=== PATIENT | male | born 1965 | race Hispanic/Latino ===

== ENCOUNTER 2018-02-02 08:22 | Day surgery (SDC) | payer OTHER ==
[2018-02-01 14:24] VITALS: BMI 27.9
--- NOTE | 2018-02-01 22:58 | HP ---
SHORT STAY HISTORY AND PHYSICAL DATE OF ADMISSION: 02/02/2018 HISTORY OF PRESENT ILLNESS: This is a 52-year-old Latin-Filipino male who comes for a colonoscopy fo r colon cancer screening. The patient has no specific GI symptoms. His bowel movements are fairly r egular. He has no family history of colon cancer. ALLERGIES: None. SOCIAL HISTORY: The patient does not smoke, but drinks alcohol socially. MEDICAL ILLNESSES: 1. Hypertension. 2. Hyperlipidemia. 3. Fracture, right ankle, 10 years ago. PHYSICAL EXAMINATION: VITAL SIGNS: Pulse is 70, blood pressure 130/80. HEENT: Conjunctivae clear. CARDIOVASCULAR SYSTEM: First and second heart sounds normal. LUNGS: Clear to auscultation. ABDOMEN: Soft to palpate. No organomegaly. No tenderness. No masses. EXTREMITIES: Reveal no edema. ADMITTING DIAGNOSIS: A 52-year-old Latin-[place]ip[place] male who comes for a colonoscopy for colon cancer screening.
--- NOTE | 2018-02-02 12:34 | OP ---
DATE OF PROCEDURE: 02/02/2018 SURGEON: Jayleen Neville M.D. OPERATIVE PROCEDURE: Colonoscopy. PREOPERATIVE DIAGNOSIS: A 52-year-old male undergoing colonoscopy for colon cancer [facility]. POSTOPERATIVE DIAGNOSES: 1. Sigmoid diverticular disease. 2. Otherwise, the exam is normal. PROCEDURE IN DETAIL: The patient was placed on his left lateral position and was given sedation by A nesthesia Department. A rectal exam was done before the scope was advanced into the rectum. No lesi ons were felt on rectal exam. A Pentax video colonoscope was introduced into the rectum and advanced all the way into the cecum. The prep was very good. The mucosa appeared normal throughout the colo n with normal vascular pattern. The appendiceal orifice, ileocecal valve, cecum, no pathology seen. Withdrawal of scope in the cecum and ascending colon, hepatic flexure, no pathology seen. The trans verse colon, splenic flexure, descending colon, no pathology seen. The sigmoid colon showed scattere d diverticular disease. Retroflexion of the scope in the rectum showed no lesions. DISCHARGE PLANNING: This is a 52-year-old male who came for colonoscopy for colon ca ncer screening. The colonoscopy showed sigmoid diverticular disease. Otherwise the exam is normal. DISCHARGE RECOMMENDATIONS: 1. High-fiber diet. 2. The patient was advised to call me if he develops abdominal pain or hematochezia. 3. Repeat colonoscopy in 10 years.
[2018-02-02] MEDS ORDERED: Lidocaine 1% PF 5 ML VIAL ONE (14:00)
[2018-02-02] MEDS ORDERED: PROPOFOL 200 MG/20 ML VIAL ONE (14:00)
== END 2018-02-02 11:04 | disposition home or self-care (01) ==
LOC: SDC 08:22
PROVIDERS: ATTEND Internal Medicine Gastroenterology
PROC: 0DJD8ZZ Inspection of Lower Intestinal Tract, Via Natural or Artificial Opening Endoscopic (ICD-10-PCS; principal; 2018-02-02)
DX: Z12.11 Encounter for screening for malignant neoplasm of colon (principal); K57.30 Diverticulosis of large intestine without perforation or abscess without bleeding; I10 Essential (primary) hypertension; E78.5 Hyperlipidemia, unspecified; Z79.899 Other long term (current) drug therapy
CPT/HCPCS: J2001; J2704

== ENCOUNTER 2018-11-13 18:20 | Emergency (ER) | payer OTHER ==
[~2018-11-13 18:20] MED LIST: ISOVUE-370 76%-LOCM 1 ML ONE
[2018-11-13 19:12] LABS: #Basophils 0.1 thou/uL (0.0-0.2); #Eosinphils 0.2 thou/uL (0.0-0.7); #Lymphocytes 2.7 thou/uL (1.20-3.40); #Monocytes 0.4 thou/uL (0.11-0.59); #Neutrophils 3.8 thou/uL (1.40-6.50); %Basophils 0.9 % (0.0-1.0); %Eosinophils 2.2 % (0.0-10.0); %Monocytes 5.5 % (0.0-10.0); %Neutrophils 53.3 % (42.0-75.0); Hemoglobin 13.9 g/dL (14.0-18.0); Mean Corpuscular HGB CONC 32.7 g/dL (32.0-36.0); Mean Corpuscular Hemoglobin 30.1 pg (27.0-31.0); Mean Corpuscular Volume 92.1 fL (78.0-98.0); Mean Platelet Volume 6.5 fL (7.4-10.4); Platelet Count 275 thou/uL (130-400); RBC Distribution Width 11.7 % (11.5-14.5); Red Blood Cell (RBC) Count 4.64 mill/uL (4.70-6.10); White Blood Cell (WBC) Count 7.1 thou/uL (4.8-10.8)
--- NOTE | 2018-11-13 19:25 | RAD ---
CHEST TWO VIEW: 11/13/18 HISTORY: Chest pain. COMPARISON: None. FINDINGS: Lungs are clear. No pneumothorax or effusion. The cardiac silhouette and mediastinal contours are wit hin normal limits. IMPRESSION: No acute intrathoracic abnormality. POS: [facility]
--- NOTE | 2018-11-13 19:35 | RAD ---
THORACIC SPINE THREE VIEW 11/13/18 HISTORY: Crush injury. COMPARISON: None. FINDINGS: No acute fracture of the thoracic spine. Vertebral body heights and disc spaces are maintained. Visua lized ribs are unremarkable. IMPRESSION: No acute abnormality. POS: [facility]
[2018-11-13 19:36] LABS: ALT (SGPT) 23 U/L (8-55); AST (SGOT) 15 U/L (5-34); Albumin 4.4 g/dL (3.5-5.0); Alkaline Phosphatase 98 U/L (40-150); Anion Gap 14 mmol/L (10-20); BUN (Urea Nitrogen) 17 mg/dL (8.4-25.7); Bilirubin, Total 0.4 mg/dL (0.2-1.2); CK (CPK) 80 U/L (30-200); Calc. Creatinine Clearance 0 mL/min (70-130); Calcium 9.9 mg/dL (7.8-10.44); Carbon Dioxide 27 mmol/L (22-29); Chloride 103 mmol/L (98-107); Estimated GFR-MDRD 68; Globulin 3.2 g/dL (2.4-3.5); Glucose 136 mg/dL (70-105); Potassium 3.8 mmol/L (3.5-5.1); Protein, Total 7.6 g/dL (6.0-8.3); Sodium 140 mmol/L (136-145)
--- NOTE | 2018-11-13 20:24 | CT ---
CT CHEST WITHOUT CONTRAST 11/13/18 HISTORY: Pain. Trauma. COMPARISON: Radiograph same day. FINDINGS: The sternum and manubrium are intact. No thoracic spine fracture. No facet joint widening. There is m otion artifact through the right T1 superior articular facet which gives the appearance of a fracture although is not felt to be real. Spinous processes are intact. Clavicle are intact. Nondisplaced buckle fracture right anterolateral f ifth rib. No acute displaced rib fracture. Costal cartilage is without fracture. Lungs are clear. No pneumothorax. No contusion. No pneumatocele. No significant pleural fluid. Thyroid is unremarkable. No acute aortic injury. Limited evaluation of the upper abdomen is unremarka ble. IMPRESSION: Nondisplaced buckle fracture right anterior fifth rib with a right anterior chest wall soft tissue co ntusion. POS: [facility]
== END 2018-11-13 21:59 | disposition home or self-care (01) ==
LOC: ERS 18:20
DX: S22.31XA Fracture of one rib, right side, initial encounter for closed fracture (principal); S20.211A Contusion of right front wall of thorax, initial encounter; I10 Essential (primary) hypertension; Z79.899 Other long term (current) drug therapy; W23.0XXA Caught, crushed, jammed, or pinched between moving objects, initial encounter
CPT/HCPCS: 36415; 71046; 71260; 72072; 80053; 82550; 84484; 85025; 93005; 94760; Q9966

== ENCOUNTER 2019-03-17 11:31 | Outpatient (CLI) | payer OTHER ==
--- NOTE | 2019-03-17 13:22 | MRI ---
MRI OF RIGHT SHOULDER PERFORMED WITHOUT CONTRAST ENHANCEMENT: HISTORY: Right shoulder pain. History of a ganglion cyst removal. FINDINGS: There is moderate arthrosis of the AC joint. There is a nonretracted full-thickness partial width far anterior supraspinatus tendon tear. This oc curs at the attachment of the anteriormost fibers. It measures approximately 6 mm in AP dimension. There is associated tendinosis of the supraspinatus tendon. In addition, there is increased signal c hange along the anterior fibers along the undersurface of the anterior fibers of the infraspinatus te ndon. This is not fluid density, but I suspect represents more than just simple tendinosis probably represents an undersurface tar with granulation tissue. It measures approximately 30-40% of the thick ness of some of the far anterior fibers. The subscapularis tendon appears intact. There is tendinosis of the biceps tendon and there appears to be a split tear involving the intraarticular portion of the biceps. There is also a chronic-appea ring SLAP-type tear of the superior labrum. The inferior glenohumeral ligament is intact. Ganglion cyst is noted of the greater tuberosity. There are arthritic changes of the glenohumeral joint space. IMPRESSION: 1. Far anterior nonretracted partial width supraspinatus tendon tear as described above. 2. Increased signal change involving the undersurface of the anterior fibers of the infraspinatus te ndon. I suspect this is related to granulation related to a partial undersurface tear of this region measuring 30-40% of the thickness of the tendon. 3. Tendinosis of the intraarticular portion of the biceps tendon with what appears to be a split tea r. There is also a chronic-appearing superior labrum anterior to posterior tear present and cyst inv olving the superior glenoid in this region. 4. No evidence of any significant rotator cuff muscle atrophy. Some minimal fatty infiltration of t he teres minor muscles incidentally noted. POS: [facility]
== END 2019-03-17 11:32 | disposition home or self-care (01) ==
LOC: MRI 11:31
PROVIDERS: ATTEND Orthopaedic Surgery
DX: M25.511 Pain in right shoulder (principal); M75.101 Unspecified rotator cuff tear or rupture of right shoulder, not specified as traumatic; M75.21 Bicipital tendinitis, right shoulder; S43.401A Unspecified sprain of right shoulder joint, initial encounter; M85.611 Other cyst of bone, right shoulder

== ENCOUNTER 2019-04-08 08:07 | Outpatient (CLI) | payer OTHER ==
[2019-04-08 09:11] LABS: Hemoglobin 13.9 g/dL (14.0-18.0); Mean Corpuscular HGB CONC 32.8 g/dL (32.0-36.0); Mean Corpuscular Hemoglobin 29.8 pg (27.0-31.0); Mean Platelet Volume 6.7 fL (7.4-10.4); Platelet Count 241 thou/uL (130-400); RBC Distribution Width 12.2 % (11.5-14.5); Red Blood Cell (RBC) Count 4.67 mill/uL (4.70-6.10); White Blood Cell (WBC) Count 6.4 thou/uL (4.8-10.8)
[2019-04-08 09:29] LABS: Anion Gap 11 mmol/L (10-20); BUN (Urea Nitrogen) 21 mg/dL (8.4-25.7); Calc. Creatinine Clearance 0 mL/min (70-130); Calcium 9.2 mg/dL (7.8-10.44); Carbon Dioxide 25 mmol/L (22-29); Chloride 107 mmol/L (98-107); Estimated GFR-MDRD 74; Glucose 106 mg/dL (70-105); Potassium 4.1 mmol/L (3.5-5.1); Sodium 139 mmol/L (136-145)
--- NOTE | 2019-04-08 17:12 | EKG ---
Test Reason : Blood Pressure : / mmHG Vent. Rate : 061 BPM Atrial Rate : 061 BPM P-R Int : 174 ms QRS Dur : 104 ms QT Int : 412 ms P-R-T Axes : 026 066 011 degrees QTc Int : 414 ms Normal sinus rhythm Normal ECG When compared with ECG of 13-NOV-2018 18:36, No significant change was found Confirmed by DR. Yumi LOZANO ([id number]) on 04/08/2019 5:12:16 PM Referred By: ZAHIDA Confirmed By:DR. Yumi LOZANO
== END 2019-04-08 08:08 | disposition home or self-care (01) ==
LOC: LABBT 08:07
PROVIDERS: ATTEND Orthopaedic Surgery
DX: Z01.818 Encounter for other preprocedural examination (principal); M75.41 Impingement syndrome of right shoulder; M75.101 Unspecified rotator cuff tear or rupture of right shoulder, not specified as traumatic; M75.21 Bicipital tendinitis, right shoulder; S43.491A Other sprain of right shoulder joint, initial encounter
CPT/HCPCS: 80048; 85027; 93005; 93010

== ENCOUNTER 2019-04-21 09:14 | Day surgery (SDC) | payer OTHER ==
[2019-04-08 08:30] VITALS: BMI 28.3
[2019-04-21] MEDS ORDERED: PROPOFOL 200 MG/20 ML VIAL ONE (09:26)
[2019-04-21] MEDS ORDERED: Rocuronium Bromide 10 MG/ML (10ML VIAL) ONE (09:26)
[2019-04-21] MEDS ORDERED: Fentanyl 100 MCG/2 ML VIAL ONE (10:17)
[2019-04-21] MEDS ORDERED: Midazolam HCl 2 mg/2 ml Vial ONE ×2 (10:17→12:08)
[2019-04-21] MEDS ORDERED: ceFAZolin Sodium (SDC) 2 GM/100 ML BAG ONE (10:53)
[2019-04-21] MEDS ORDERED: Promethazine HCl 25 MG/ML VIAL IM PRN (11:28)
[2019-04-21] MEDS ORDERED: traMADol HCl 50 MG TAB PO PRN ×2 (11:28)
[2019-04-21] MEDS ORDERED: HYDROcodone/Acetaminophen 10/325 mg Tablet PO PRN ×2 (11:28)
[2019-04-21] MEDS ORDERED: Ropivacaine HCl/PF 250 ML in Premix Bag 1 BAG NERVE BLCK SCH (11:28)
[2019-04-21] MEDS ORDERED: Ketorolac Tromethamine 30 MG/ML VIAL IVP PRN (11:28)
[2019-04-21] MEDS ORDERED: Ondansetron PF 4 MG/2 ML Vial IVP PRN (11:28)
[2019-04-21] MEDS ORDERED: Zolpidem Tartrate 5 MG TAB PO PRN (11:28)
[2019-04-21] MEDS ORDERED: Fentanyl 100 MCG/2 ML VIAL IV PRN (11:31)
[2019-04-21] MEDS ORDERED: Ropivacaine 0.2% 550 ML 550 ML NERVE BLCK SCH (15:40)
[2019-04-21] MEDS ORDERED: Ondansetron ODT 4 MG TAB ONE (17:21)
--- NOTE | 2019-04-21 20:26 | OP ---
DATE OF PROCEDURE: 04/21/2019 PREOPERATIVE DIAGNOSES: 1. Rotator cuff tear of the right shoulder. 2. Right acromioclavicular arthritis. 3. Biceps tendinitis of the right shoulder. 4. SLAP tear in the right shoulder. 5. Mass in the anterior aspect of right shoulder, possible ganglion cyst. POSTOPERATIVE DIAGNOSES: 1. Rotator cuff tear of the right shoulder. 2. Right acromioclavicular arthritis. 3. Biceps tendinitis of the right shoulder. 4. SLAP tear in the right shoulder. 5. Mass in the anterior aspect of right shoulder, possible ganglion cyst, with the cyst being a lipoma. PROCEDURES PERFORMED: 1. Arthroscopy of the right shoulder, subacromial decompression, rotator cuff repair. 2. Arthroscopic excision of distal clavicle. 3. Biceps tenodesis. 4. Superior labral repair (SLAP repair). 5. Excision of lipoma of the anterior aspect of the right shoulder. ANESTHESIA: General. DESCRIPTION OF PROCEDURE: The patient had a supraclavicular block performed prior to surgery. He was given preoperative IV antibiotics, taken to the operating room, placed in supine position. Satisfactory general anesthesia was performed. The patient was then placed in the left lateral decubitus position. All bony prominences were well padded. The right upper extremity was placed in 15 pounds of traction. Initially, the mass over the anterior aspect of the shoulder in the region of the bicipital groove of the proximal humerus was opened. A 3 cm incision was made over the mass and a lipoma was encountered. It was well encapsulated and was completely removed. The anterior deltoid muscle fibers were divided bluntly. The biceps tendon sheath was found open in the biceps tendon, which was longitudinally torn and erythematous consistent with biceps tendinitis was located and the suture using #2 FiberWire. The shoulder joint was then arthroscoped through the posterior, anterior, superior, and lateral portals. Upon entering the shoulder joint, the patient was noted to have no significant arthritic changes. The proximal aspect of the biceps tendon was noted to again have longitudinal tearing and tendinitis and a 9-degree surface ArthroWand was used to cut the biceps tendon off the superior aspect of the labrum. The superior labrum which was torn both anterior and posterior to the biceps tendon was repaired using Arthrex PushLock anchors and the #2 FiberWire 2 anchors were utilized to provide good repair of the labrum. The subacromial space was then entered. There was significant amount of bursitis, which was cleaned up with the shaver and the surface ArthroWand. Bur was used to thin down the undersurface of the acromion. The distal clavicle and acromioclavicular joint were located. The inferior spur was removed and the distal aspect of the clavicle was removed with a high-speed bur. The anterior fibers of the supraspinatus tendon were noted to be torn, but non retracted and a 2 x 2 anchor bridge was used utilizing FiberTape and to revise the repair for the rotator cuff. This provided excellent strength for the repair and good reduction of the repair. Attention was then turned back to the biceps tendon, where the biceps tenodesis was performed, drilling a hole and using the Arthrex 8 mm anchor and additional sutures were also added to provide stability to the arthrodesis site. All the wounds were irrigated during the procedure. The fascia over the deltoid muscle was closed with 2-0 Vicryl. All the skin incisions were closed with 3-0 Rapide. Sterile dressing was applied. The patient was taken out of traction. He was awakened, extubated, and transferred to recovery room in stable condition. ESTIMATED BLOOD LOSS: 150 mL. COMPLICATIONS: None. Job ID: [id number]
--- NOTE | 2019-04-25 05:40 | PQF ---
[facility] POST DISCHARGE CLINICAL DOCUMENTATION IMPROVEMENT CLARIFICATION FORM l Todays Date: 04/25/19 l Patients Name HERMANN LARA l l Admit Date 04/21/19 l Disch Date 04/21/19 Visual Coordinator Name Dione Pereira Email: [email or web address] Cell: [phone] To be completed by Visual Coordinator: Present Clinical Indicators - Signs / Symptoms Results and Location in Medical Record [ ] Documentation of: [ ] [ ] Documentation of: [ ] [ ] Documentation of: [ ] [ ] Documentation of: [ ] [ ] Risks [ ] [ ] [ ] Treatment [ ] Excision of shoulder lipoma Query for lipoma size [ ] [ ] To be completed by Physician: MARY SHIELDS The documentation in this patients record requires clarification to ensure coding compliance and accuracy. Check the appropriate box and include in your discharge summary. [ ] [ ] [ ] [ ] Please check this box if this does not apply to this patient [ ] Unable to determine [ ] Other diagnosis: Review the following information and exercise your independent professional judgment in responding to the clarification. Based upon the clinical findings, risk factors, and treatment, please clarify if you are treating one of the above probable or suspected diagnoses. Physician Signature: Date Time MTDD
== END 2019-04-21 18:00 | disposition home or self-care (01) ==
LOC: SDC 09:14
PROVIDERS: ATTEND Orthopaedic Surgery
PROC: 0PB94ZZ Excision of Right Clavicle, Percutaneous Endoscopic Approach (ICD-10-PCS; principal; 2019-04-21)
PROC: 0LU Tendons, Supplement (ICD-10-PCS; principal; 2019-04-21)
PROC: 0MM14ZZ Reattachment of Right Shoulder Bursa and Ligament, Percutaneous Endoscopic Approach (ICD-10-PCS; principal; 2019-04-21)
PROC: 0LQ14ZZ Repair Right Shoulder Tendon, Percutaneous Endoscopic Approach (ICD-10-PCS; principal; 2019-04-21)
PROC: 0JBD0ZZ Excision of Right Upper Arm Subcutaneous Tissue and Fascia, Open Approach (ICD-10-PCS; principal; 2019-04-21)
PROC: 3E0T3BZ Introduction of Anesthetic Agent into Peripheral Nerves and Plexi, Percutaneous Approach (ICD-10-PCS; principal; 2019-04-21)
PROC: 0LS14ZZ Reposition Right Shoulder Tendon, Percutaneous Endoscopic Approach (ICD-10-PCS; principal; 2019-04-21)
DX: M75.101 Unspecified rotator cuff tear or rupture of right shoulder, not specified as traumatic (principal); M75.41 Impingement syndrome of right shoulder; S43.431A Superior glenoid labrum lesion of right shoulder, initial encounter; M75.21 Bicipital tendinitis, right shoulder; D17.21 Benign lipomatous neoplasm of skin and subcutaneous tissue of right arm; G89.18 Other acute postprocedural pain; M19.011 Primary osteoarthritis, right shoulder; Z79.899 Other long term (current) drug therapy
CPT/HCPCS: A4306; C1713; J0690; J2250; J2704; J2795; J3010; Q0162

== ENCOUNTER 2020-05-15 08:36 | Emergency (ER) | payer OTHER ==
[2020-05-15] MEDS ORDERED: Aspirin Chewable 81 MG TAB ONE (09:00)
--- NOTE | 2020-05-15 09:22 | RAD ---
XR Chest 1 View Portable HISTORY: Chest pain COMPARISON: 11/13/2018 FINDINGS: The heart size is normal. The lungs are well expanded without focal areas of consolidation, pneumothorax or pleural effusions. IMPRESSION: No radiographic evidence of acute cardiopulmonary process.
[2020-05-15 09:25] LABS: #Basophils 0.1 thou/uL (0.0-0.2); #Eosinphils 0.1 thou/uL (0.0-0.7); Hemoglobin 14.6 g/dL (14.0-18.0); Mean Platelet Volume 7.1 fL (7.4-10.4); RBC Distribution Width 11.9 % (11.5-14.5)
[2020-05-15 09:35] LABS: #Monocytes 0.5 thou/uL (0.11-0.59); #Neutrophils 3.6 thou/uL (1.40-6.50); %Basophils 0.8 % (0.0-1.0); %Eosinophils 1.6 % (0.0-10.0); %Lymphocytes 31.4 % (21.0-51.0); %Monocytes 8.1 % (0.0-10.0); %Neutrophils 58.1 % (42.0-75.0); Mean Corpuscular HGB CONC 34.8 g/dL (32.0-36.0); Mean Corpuscular Hemoglobin 31.1 pg (27.0-31.0); Mean Corpuscular Volume 89.3 fL (78.0-98.0); Platelet Count 234 thou/uL (130-400); Red Blood Cell (RBC) Count 4.71 mill/uL (4.70-6.10); White Blood Cell (WBC) Count 6.2 thou/uL (4.8-10.8)
[2020-05-15 09:47] LABS: ALT (SGPT) 32 U/L (8-55); AST (SGOT) 24 U/L (5-34); Albumin 4.4 g/dL (3.5-5.0); Alkaline Phosphatase 85 U/L (40-110); Anion Gap 11 mmol/L (10-20); BUN (Urea Nitrogen) 15 mg/dL (8.4-25.7); Bilirubin, Total 0.6 mg/dL (0.2-1.2); CK (CPK) 117 U/L (30-200); Calc. Creatinine Clearance 0 mL/min (70-130); Carbon Dioxide 25 mmol/L (22-29); Chloride 107 mmol/L (98-107); Estimated GFR-MDRD 76; Globulin 3.1 g/dL (2.4-3.5); Glucose 104 mg/dL (70-105); Potassium 3.9 mmol/L (3.5-5.1); Protein, Total 7.5 g/dL (6.0-8.3); Sodium 139 mmol/L (136-145)
[2020-05-15 11:29] LABS: Troponin I Less than 0.010 ng/mL (< 0.028)
== END 2020-05-15 12:28 | disposition home or self-care (01) ==
LOC: ERS 08:36
DX: R07.9 Chest pain, unspecified (principal); I10 Essential (primary) hypertension; Z79.899 Other long term (current) drug therapy
CPT/HCPCS: 36415; 71045; 80053; 82550; 84484; 85025; 93005

== ENCOUNTER 2020-07-06 12:23 | Emergency (ER) | payer OTHER ==
--- NOTE | 2020-07-06 13:06 | RAD ---
XR Chest 1 View Portable History: Chest pain. Covid positive Comparison: Radiograph April 2020 Findings: Lungs are clear. No pneumothorax or effusion. Cardiac silhouette and mediastinal contours a re within normal limits. No acute osseous abnormality. Impression: 1. No acute intrathoracic abnormality. 2. Curvilinear radiopaque foreign object measuring up to 4 mm in the lateral superficial left hemitho rax soft tissues.
--- NOTE | 2020-07-07 14:09 | EKG ---
Test Reason : Blood Pressure : / mmHG Vent. Rate : 094 BPM Atrial Rate : 094 BPM P-R Int : 150 ms QRS Dur : 092 ms QT Int : 336 ms P-R-T Axes : 018 072 -07 degrees QTc Int : 420 ms Normal sinus rhythm Abnormal QRS-T angle, consider primary T wave abnormality Abnormal ECG Confirmed by ELAN STANTON ([id number]), manager editorial PANCHO MANSFIELD ([id number]) on 07/07/2020 2:08:45 PM Referred By: Confirmed By:ELAN Stacy
== END 2020-07-06 13:12 | disposition home or self-care (01) ==
LOC: ERS 12:23
DX: U07.1 COVID-19 (principal); I10 Essential (primary) hypertension; Z79.899 Other long term (current) drug therapy
CPT/HCPCS: 71045; 93005

== ENCOUNTER 2020-07-11 10:58 | Emergency (ER) | payer OTHER ==
[2020-07-11] MEDS ORDERED: Ondansetron ODT 4 MG TAB ONE (11:38)
== END 2020-07-11 11:41 | disposition home or self-care (01) ==
LOC: ERS 10:58
DX: U07.1 COVID-19 (principal); I10 Essential (primary) hypertension; Z79.899 Other long term (current) drug therapy
CPT/HCPCS: 99283; Q0162

== ENCOUNTER 2022-05-03 15:02 | Emergency (ER) | payer OTHER, SELFPAY ==
[2022-05-03] MEDS ORDERED: Ketorolac Tromethamine 30 MG/ML VIAL ONE (15:24)
[2022-05-03] MEDS ORDERED: Boostrix 0.5 ML (Tdap) VIAL ONE (15:58)
[2022-05-03] MEDS ORDERED: Lidocaine 1% MPF 2 ML VIAL ONE (16:46)
== END 2022-05-03 18:14 | disposition home or self-care (01) ==
LOC: ERS 15:02
DX: S61.011A Laceration without foreign body of right thumb without damage to nail, initial encounter (principal); S61.411A Laceration without foreign body of right hand, initial encounter; I10 Essential (primary) hypertension; Z79.899 Other long term (current) drug therapy; Y29.XXXA Contact with blunt object, undetermined intent, initial encounter
CPT/HCPCS: 12002; 90471; 90715; 96372; J1885

== ENCOUNTER 2022-06-30 15:09 | Emergency (ER) | payer SELFPAY ==
[2022-06-30] MEDS ORDERED: Dexameth. Sod Phosp. 10 MG/ML (CHEMO USE ONLY) ONE (17:46)
== END 2022-06-30 18:02 | disposition home or self-care (01) ==
LOC: ERS 15:09
DX: J06.9 Acute upper respiratory infection, unspecified (principal); I10 Essential (primary) hypertension; Z79.899 Other long term (current) drug therapy
CPT/HCPCS: 96372; 99283; J1100

== ENCOUNTER 2024-04-11 07:28 | Emergency (ER) | payer OTHER ==
[2024-04-11] MEDS ORDERED: Acetaminophen 500 MG TAB ONE (07:48)
[2024-04-11] MEDS ORDERED: Ketorolac Tromethamine 30 MG (1 mL) VIAL ONE (07:48)
[2024-04-11 08:35] LABS: Influenza A by NAA Not Detected (NotDetected); Influenza B by NAA Not Detected (NotDetected); SARS-CoV-2 NAA Rapid Test Not Detected (NotDetected)
== END 2024-04-11 08:47 | disposition home or self-care (01) ==
LOC: ERS 07:28
DX: B34.9 Viral infection, unspecified (principal); I10 Essential (primary) hypertension
CPT/HCPCS: 71046; 96372; J1885